=== PATIENT | female | born 1980 | race Caucasian/White ===

== ENCOUNTER 2016-09-04 07:22 | Inpatient (IN) | payer BC ==
[2016-09-04] MEDS ORDERED: IV START KIT ONE (07:52)
[2016-09-04] MEDS ORDERED: OXYTOCIN 10 UNITS/ML VIAL ONE (07:52)
[2016-09-04] MEDS ORDERED: PUMP TUBING ONE ×2 (07:53→19:32)
[2016-09-04] MEDS ORDERED: LIDOCAINE 1% (PRES FREE) 30 ML VIAL ONE (07:53)
[2016-09-04] MEDS ORDERED: MINERAL OIL 25 ML BOT ONE (07:53)
[2016-09-04] MEDS ORDERED: SODIUM CHLORIDE 0.9% FLUSH 30 ML ONE (07:53)
[2016-09-04] MEDS ORDERED: LIDOCAINE Viscous 2% 15 ML UDCUP ONE (07:53)
[2016-09-04] MEDS ORDERED: OXYTOCIN IN NS 500 ML IV ONE (07:55)
[2016-09-04 09:02] LABS: HEMATOCRIT 36.2 % (37.0-47.0); MEAN CELL VOLUME 93.3 fl (81.0-99.0); MEAN CORPUSCULAR HEMOGLOBIN 30.9 pg (27.0-31.0); MEAN CORPUSCULAR HGB CONC 33.1 g/dl (33.0-37.0); RED CELL DISTRIBUTION WIDTH 13.8 % (11.5-14.5)
[2016-09-04] MEDS: LACTATED RINGERS 1,000 ML IV SCH ×4 (09:22→19:01)
[2016-09-04] MEDS: OXYTOCIN IN NS 500 ML IV PRN ×7 (09:27→16:13)
[2016-09-04 10:13] VITALS: BMI 34.9
--- NOTE | 2016-09-04 12:08 | PCMAN ---
OB Admission Note - History : 8 Term: 7 : 0 Abortions (S&E): 0 Livin EDC:: 09/12/16 Gestational Age (weeks): 38 Days (#/7): 6 Admit Cervical Dilation:: 1-2 Admit Cervical Effacement (%):: 20 Admit Station:: -3 Admit Presentaton:: cephalic Membrane Status: Intact Contractions: No Contraction Frequency:: rare, mild Heart Rate:: 130 (category 1) Status:: good EFW:: 8.5 - 9 lbs Summary of Course:: Pt has had a total weight gain of 31 lbs. Normal blood pressures, regular increase in fundal height. Pt has had GDM in her last 2 pregnancies. With this she began checking her post-prandials; some were as high as 180. The pt has been following a diabetic diet and has been on Metformin since 33.5 weeks. Fastings have been usually under 100, but after meal sugars have been less controlled lately. For this reason IoL has been recommended. Pt also noted to have gestational thrombocytopenia in last few weeks: 110K on . Count has remained stable since then between 99K to 114K. Platelets 108K today. Prior c/section for breech for first. Pt has had several large babies, as much as 11lbs. - Labs Blood Type: A (+) positive Hct/Hgb:: 12.1 Rubella Status: Immune GBS Status: Negative Abnormal Labs: None Other Labs:: Platelet count has been low, last count 114K - Review of Systems Poornima has not been having any significant contrx. Baby is active. - Physical Exam Psych/Mental Status: Mood/Affect Appropriate Neurological: Alert, Oriented x 4, Normal Speech Lungs: Clear to Auscultation Bilaterally Cardiovascular: Regular Rate and Rhythm Abdomen: Normal Bowel Sounds, Other (Gravid. US demonstrates baby in cephalic presentation, back to maternal left, LOT) Genitourinary: Normal Female Genitalia Skin: Normal Color, Warm - Problems (1) Uterine scar from previous delivery Status: Acute Code: O34.219 (2) Gestational diabetes mellitus (GDM) affecting eighth Status: Acute Code: O24.419Assessment/Plan: Inadequate blood sugar control in past few weeks. Risks/benefits of induction of labor discussed with pt and accepted. - Additional Comments Exam is difficult because presenting part is not well applied to cervix. Vertex is floating. Options were discussed and it was decided to start pitocin first to improve uterine tone and hopefully cause descent of presenting part. A balloon catheter may be helpful but I don't think I can place this as yet.
[2016-09-04] MEDS ORDERED: FENTANYL/ROPIVACAINE EPIDURAL 250 ML EP ONE (14:11)
[2016-09-04] MEDS ORDERED: EPIDURAL PUMP SET ONE (14:11)
--- NOTE | 2016-09-04 14:30 | PDOC36 ---
Provider Note Subject: Progress Note Note: Poornima is starting to feel more pressure. O: Pitocin is at 9 mu/mn. FH cat 1. Pt appears flushed. Contractions q3mins of better duration and intensity. Exam shows cervix to be very posterior, floppy, soft, stretchy At first, cervix was 1-2cm but with stripping of membranes it went to 2 then 3cm , 80%, vertex well applied at -2 station. AROM performed with pt's permission. Clear fluid. Imp: Pt entering active labor Plan: Routine care for TOLAC, in active labor; OR team immediately available. Pt will be wanting her epidural soon. IV fluid bolus started.
[2016-09-04] MEDS ORDERED: ONDANSETRON 4 MG/2ML 2 ML VIAL IV PRN (15:00)
[2016-09-04] MEDS ORDERED: LACTATED RINGERS 500 ML IV PRN (15:00)
[2016-09-04] MEDS ORDERED: DIPHENHYDRAMINE HCL 50 MG/1 ML VIAL IV PRN (15:00)
[2016-09-04] MEDS ORDERED: NALOXONE HCL 0.4 MG/ML VIAL IV PRN (15:00)
[2016-09-04] MEDS ORDERED: SODIUM CHLORIDE 0.9% 500 ML IV PRN (15:00)
[2016-09-04] MEDS ORDERED: METOCLOPRAMIDE HCL 5 MG/ML 2ML VIAL IV PRN (15:00)
[2016-09-04] MEDS ORDERED: NALBUPHINE HCL 20 MG/ML AMP IV PRN (15:00)
[2016-09-04] MEDS ORDERED: EPHEDRINE SULFATE 50 MG/ML 1ML VIAL IV PRN (15:00)
[2016-09-04] MEDS ORDERED: ROPIVACAINE 0.5% 30 ML VIAL ONE ×2 (15:20→16:58)
[2016-09-04] MEDS ORDERED: EPIDURAL PROCEDURE TRAY ONE (15:20)
[2016-09-04] MEDS ORDERED: FENTANYL/ROPIVACAINE EPIDURAL 250 ML EP SCH (16:00)
[2016-09-04] MEDS ORDERED: SODIUM CHLORIDE 0.9% FLUSH 10 ML ONE (16:58)
[2016-09-04] MEDS ORDERED: LACTATED RINGERS 1,000 ML IV PRN (19:00)
[2016-09-04] MEDS ORDERED: SENNOSIDES 8.6 MG TABLET PO PRN (19:00)
[2016-09-04] MEDS ORDERED: BENZOCAINE/MENTHOL 60 APPLIC/BOT TP PRN (19:00)
[2016-09-04] MEDS ORDERED: OXYTOCIN IN NS 334 ML IV PRN (19:00)
[2016-09-04] MEDS ORDERED: OXYTOCIN IN NS 167 ML IV PRN (19:00)
[2016-09-04] MEDS ORDERED: LANOLIN 50 APPLIC/7G TUBE TP PRN (19:00)
[2016-09-04] MEDS ORDERED: MEASLES,MUMPS&RUBELLA VACCINE 0.5 ML VIAL SUB-Q V ONE (19:00)
[2016-09-04] MEDS ORDERED: MAGNESIUM HYDROXIDE 30 ML UDCUP PO PRN (19:00)
[2016-09-04] MEDS ORDERED: CALCIUM CARBONATE 500 MG TAB.CHEW PO PRN (19:00)
[2016-09-04] MEDS ORDERED: DIPHTH,PERTUSS(ACELL),TET VAC 0.5 ML VIAL IM V ONE (19:00)
[2016-09-04] MEDS ORDERED: OXYCODONE HCL 5 MG TABLET PO PRN (19:00)
[2016-09-04] MEDS ORDERED: OXYCODONE/ACETAMINOPHEN 5/325 MG TABLET PO PRN (19:00)
[2016-09-04] MEDS: IBUPROFEN 800 MG TABLET PO PRN (20:59)
--- NOTE | 2016-09-04 23:40 | PCMDEL ---
Delivery Note - Labor 1st stage (hr/min):: 4h28 2nd stage (hr/min):: 6min 3rd stage (hr/min):: 9min Total (hr/min):: 9u48lix Pushed (hr/min):: during one contraction. - Delivery Delivery (Date): 09/04/16 Delivery (Time): 18:29 Infant Gender: Male Weight: 8 lb 14 oz Length: 1 ft 8 in Presentation: Cephalic Position: OA Umbilical Cord: 3 Vessel, Nuchal Cord Delayed Cord Clamping:: > 3 min 1 Minute Total: 9 5 Minute Total: 9 Placenta:: Delivered spontaneously, easily but followed by a large clot of approx 900c EBL:: 1000cc Perineum:: Intact, but with a small laceration anteriorly requiring no sutures. Suture:: none Anesthesia/Meds:: epidural Length ROM:: 4h 34 min Comments:: "Radu" Poornima was having more back pain. She agreed to be checked and was found to be fully dilated with vertex SAHRA at +2 station. With one slight push vertex was , and with the next contraction, before I had both gloves on, the head delivered. There was a tight nuchal cord but shoulders delivered without hesitation. Mellow baby boy greeted joyously by his parents, good tone and breathing. Cord clamped and cut by the dadTommie. Normal placenta and cord.
[2016-09-05] MEDS: IBUPROFEN 800 MG TABLET PO PRN ×4 (03:01→22:10)
[2016-09-05 06:23] LABS: HEMATOCRIT 29.6 % (37.0-47.0); HEMOGLOBIN 10.2 gm/l (12.0-16.0); MEAN CELL VOLUME 92.5 fl (81.0-99.0); MEAN CORPUSCULAR HEMOGLOBIN 31.9 pg (27.0-31.0); MEAN CORPUSCULAR HGB CONC 34.5 g/dl (33.0-37.0); RED CELL DISTRIBUTION WIDTH 13.7 % (11.5-14.5)
--- NOTE | 2016-09-05 08:51 | PDOC44 ---
- Subjective Day: 1 Pt is doing well today with no specific concerns. Labs were reviewed. Reports Flatus, Reports Pain Tolerable, Reports , Reports Lochia Light - Objective Temp Pulse Resp BP Pulse Ox 98.1 F 86 18 108/59 09/05/16 07:13 09/05/16 07:13 09/05/16 07:13 09/05/16 07:13 Lab Results 09/05/16 09/04/16 06:10 08:45 WBC 10.0 7.6 RBC 3.20 L 3.88 L Hgb 10.2 L 12.0 Hct 29.6 L 36.2 L Plt Count 108 L 108 L 09/05/16 09/04/16 06:10 14:23 MCH 31.9 H POC Capillary Glucose 113 H Current Medications Generic Name Dose Route Start Last Admin Trade Name Freq PRN Reason Stop Dose Admin Acetaminophen 325 - 650 mg 09/04/16 19:00 Tylenol PO Q4H PRN Pain (Mild) Benzocaine/Menthol 1 applic 09/04/16 19:00 Dermoplast TP PRN PRN Patient Comfort Calcium Carbonate/Glycine 500 - 1,000 mg 09/04/16 19:00 Tums PO BID PRN Indigestion Docusate Sodium 100 mg 09/04/16 19:00 Colace PO DAILY PRN Comfort Emollient Ointment 1 applic 09/04/16 19:00 [id number] TP PRN PRN sore nipples Lactated Ringer's 1,000 mls @ 100 mls/hr 09/04/16 19:00 Lactated Ringers IV .Q10H PRN Titrate per clinical situation OXYTOCIN IN NS 167 mls @ 167 mls/hr 09/04/16 19:00 09/04/16 19:30 Oxytocin-Ns 30 Unit/500 Ml IV 167 mls/hr X1 PRN Administration Induction OXYTOCIN IN NS 334 mls @ 334 mls/hr 09/04/16 19:00 09/04/16 19:30 Oxytocin-Ns 30 Unit/500 Ml IV 334 mls/hr X1 PRN Administration Bleeding Ibuprofen 800 mg 09/04/16 19:00 09/05/16 03:01 Motrin PO 800 mg Q6H PRN Administration Pain (Mild) Magnesium Hydroxide 30 ml 09/04/16 19:00 Milk Of Magnesia PO BEDTIME PRN Constipation Oxycodone HCl 5 - 10 mg 09/04/16 19:00 Roxicodone PO Q3H PRN Pain (Severe) Oxycodone/Acetaminophen 1 - 2 tab 09/04/16 19:00 Percocet 5/325 PO Q4H PRN Pain (Moderate) Senna 17.2 mg 09/04/16 19:00 Senokot PO BEDTIME PRN Comfort Sodium Chloride 10 ml 09/04/16 19:00 Normal Saline 10ml Flush IV PRN PRN IV Flush Sodium Chloride 10 ml 09/05/16 01:00 09/05/16 07:00 Normal Saline 10ml Flush IV Not Given Q8HR NEIDA - Physical Exam General: Afebrile Psych/Mental Status: Mood/Affect Appropriate, Bonding Well Neurological: Alert Lungs: Clear to Auscultation Bilaterally Cardiovascular: Regular Rate and Rhythm Fundus: Firm, Below Umbilicus Abdomen: Normal Bowel Sounds Lochia: Light Skin: Normal Color, Warm - Problems:Assessment/Plan (1) Uterine scar from previous delivery Status: AcuteAssessment/Plan: Pt had an uncomplicated delivery with normal delivery of placenta, but approx 1000cc blood loss. She is tolerating this anemia well. (2) Gestational diabetes mellitus (GDM) affecting eighth Status: AcuteAssessment/Plan: Inadequate blood sugar control in past few weeks. Risks/benefits of induction of labor discussed with pt and accepted. (3) Thrombocytopenia affecting Status: AcuteAssessment/Plan: Stable; no sequelae. Disposition: Anticipate DC Home Tomorrow
[2016-09-05] MEDS: ACETAMINOPHEN 325 MG TABLET PO PRN ×2 (12:02→22:42)
[2016-09-05] MEDS: DOCUSATE SODIUM 100 MG CAPSULE PO PRN (14:18)
[2016-09-05] MEDS: CYCLOBENZAPRINE HCL 10 MG TABLET PO PRN (18:10)
[2016-09-06] MEDS: CYCLOBENZAPRINE HCL 10 MG TABLET PO PRN (02:17)
[2016-09-06] MEDS: ACETAMINOPHEN 325 MG TABLET PO PRN ×2 (04:38→10:32)
[2016-09-06] MEDS: IBUPROFEN 800 MG TABLET PO PRN ×2 (04:38→10:32)
--- NOTE | 2016-09-06 08:38 | PDOC39B ---
Hospital Course: ADMIT DATE: 09/04/16 DISCHARGE DATE: 09/06/16 ADMISSION DIAGNOSES: GDM, inadequate control, Prior c/section, at term PROCEDURES: Induction of labor, spontaneous vaginal . HISTORY OF PRESENT ILLNESS: 36 year old G8 T7 L7 at 38 weeks 6 days presenting with cephalic presentation (despite prior unstable lie) and h/o high blood sugars. HOSPITAL COURSE: The patient responded well to pitocin induction. AROM initiated active labor. Pt had an uncomplicated labor and . Baby boy Radu De Leon was born at 18:29 on 09/04/16. Mother and baby are doing well in the period. By day of discharge the patient is ambulating, eating, voiding, and passing flatus without difficulty. Pain is controlled and lochia is appropriate. She is [] - Physical Exam Vital Signs: Temp Pulse Resp BP Pulse Ox 97.5 F 72 16 100/55 09/06/16 01:30 09/06/16 01:30 09/06/16 01:30 09/06/16 01:30 General: Afebrile Psych/Mental Status: Mood/Affect Appropriate, Bonding Well (baby kept mom up last night wanting to eat.) Neurological: Oriented x 4 Lochia: Light Skin: Normal Color, Warm - Discharge Diagnosis (1) Uterine scar from previous delivery Status: AcuteAssessment/Plan: Pt had an uncomplicated delivery with normal delivery of placenta, but approx 1000cc blood loss. She is tolerating this anemia well. (2) Gestational diabetes mellitus (GDM) affecting eighth Status: AcuteAssessment/Plan: Inadequate blood sugar control in past few weeks. Risks/benefits of induction of labor discussed with pt and accepted. Pt agrees with 2HGTT at 3 months post-. (3) Thrombocytopenia affecting Status: AcuteAssessment/Plan: Stable; no sequelae. - Discharge Plan Condition: Good Disposition: Home Prescriptions: Cyclobenzaprine HCl [FLEXERIL 10 MG TABLET (SHF)] 10 mg PO Q8H PRN #20 PRN Reason: Muscle Spasm Ibuprofen [IBUPROFEN 800 MG TABLET (SHF)] 800 mg PO Q6H PRN #100 PRN Reason: Pain (Mild) Follow-Up: Ernestina Solo MD [Staff Physician] - In 6 weeks
[2016-09-06] MEDS: DOCUSATE SODIUM 100 MG CAPSULE PO PRN (10:32)
[2016-09-06 12:14] VITALS: BP 115/63
== END 2016-09-06 14:30 | disposition home or self-care (01) | DRG 775 ==
LOC: FBC 07:22
PROVIDERS: ADMIT Obstetrics & Gynecology; ATTEND Obstetrics & Gynecology
PROC: 10E0XZZ Delivery of Products of Conception, External Approach (ICD-10-PCS; principal; 2016-09-04)
PROC: 3E033VJ Introduction of Other Hormone into Peripheral Vein, Percutaneous Approach (ICD-10-PCS; 2016-09-04)
PROC: 10907ZC Drainage of Amniotic Fluid, Therapeutic from Products of Conception, Via Natural or Artificial Opening (ICD-10-PCS; 2016-09-04)
DX: O24.425 Gestational diabetes mellitus in childbirth, controlled by oral hypoglycemic drugs (principal); O99.12 Other diseases of the blood and blood-forming organs and certain disorders involving the immune mechanism complicating childbirth; D69.6 Thrombocytopenia, unspecified; O34.211 Maternal care for low transverse scar from previous cesarean delivery; O69.81X0 Labor and delivery complicated by cord around neck, without compression, not applicable or unspecified; Z37.0 Single live birth; O09.523 Supervision of elderly multigravida, third trimester; Z3A.38 38 weeks gestation of pregnancy